=== PATIENT | female | born 1960 | race Hispanic/Latino ===

== ENCOUNTER 2018-03-01 17:20 | Emergency (ER) | payer SELFPAY ==
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
[2018-03-01] MEDS ORDERED: D50W (25GM) Syringe IV ONE (19:00)
[2018-03-01] MEDS ORDERED: ADRENALIN ONE (19:00)
== END 2018-03-01 22:35 ==
LOC: ED 17:20
DX: I46.9 Cardiac arrest, cause unspecified (principal)
CPT/HCPCS: 92950; 99291; J0171